=== PATIENT | female | born 1940 | race Caucasian/White ===

== ENCOUNTER 2016-11-23 18:55 | Emergency (ER) | payer OTHER, MEDICARE ==
[~2016-11-23] VITALS: Ht 167.6 cm; Wt 76.6 kg
[2016-11-23 20:03] VITALS: BP 157/80
== END 2016-11-23 20:03 | disposition home or self-care (01) ==
LOC: EME 18:55
DX: I72.4 Aneurysm of artery of lower extremity (principal); J45.909 Unspecified asthma, uncomplicated; Z86.010 Personal history of colon polyps
CPT/HCPCS: 99281; 99283